=== PATIENT | female | born 1955 | race African-American/Black ===

== ENCOUNTER 2016-04-03 10:20 | Outpatient (CLI) | payer MEDICARE, OTHER ==
[2016-04-03 18:22] LABS: Hemoglobin A1c 6.2 % (4.0-6.0)
[2016-04-03 18:38] LABS: ALT (SGPT) 10 U/L (0-55); AST (SGOT) 13 U/L (5-34); Alkaline Phosphatase 77 U/L (40-150); Anion Gap 14 mmol/L (10-20); BUN (Urea Nitrogen) 12 mg/dL (9.8-20.1); Bilirubin, Total 0.3 mg/dL (0.2-1.2); Calc. Creatinine Clearance 0 mL/min (70-130); Calcium 9.1 mg/dL (7.8-10.44); Carbon Dioxide 25 mmol/L (23-31); Chloride 108 mmol/L (98-107); Estimated GFR-MDRD 85; LDL Cholesterol, Calculated 79 mg/dL; Protein, Total 6.9 g/dL (5.8-8.1)
[2016-04-03 21:00] LABS: #Basophils 0.1 thou/uL (0.0-0.2); #Eosinphils 0.1 thou/uL (0.0-0.7); #Monocytes 0.5 thou/uL (0.11-0.59); %Basophils 0.9 % (0.0-1.0); %Eosinophils 0.5 % (0.0-10.0); %Monocytes 4.7 % (0.0-10.0); Hematocrit 49.5 % (36.0-47.0); Macrocytosis SLIGHT = 6-15 cells (100X) (0-5/hpf); Mean Platelet Volume 5.4 fL (7.4-10.4); Red Blood Cell (RBC) Count 4.81 mill/uL (4.20-5.40); White Blood Cell (WBC) Count 10.6 thou/uL (4.8-10.8)
== END 2016-04-03 10:21 | disposition home or self-care (01) ==
LOC: LABLEX 10:20
PROVIDERS: ATTEND Family Medicine
DX: Z01.818 Encounter for other preprocedural examination (principal); I10 Essential (primary) hypertension; E11.9 Type 2 diabetes mellitus without complications; E78.5 Hyperlipidemia, unspecified; E55.9 Vitamin D deficiency, unspecified; E03.9 Hypothyroidism, unspecified
CPT/HCPCS: 36415; 80053; 80061; 82306; 83036; 84443; 85025

== ENCOUNTER 2016-06-02 04:39 | Emergency (ER) | payer MEDICARE, OTHER ==
[2016-06-02] MEDS ORDERED: Lorazepam 2 MG/ML VIAL ONE (05:20)
[2016-06-02 05:23] LABS: #Basophils 0.1 thou/uL (0.0-0.2); #Lymphocytes 1.6 thou/uL (1.20-3.40); #Monocytes 0.5 thou/uL (0.11-0.59); #Neutrophils 8.6 thou/uL (1.40-6.50); %Basophils 0.8 % (0.0-1.0); %Eosinophils 0.3 % (0.0-10.0); %Lymphocytes 14.6 % (21.0-51.0); %Monocytes 4.7 % (0.0-10.0); %Neutrophils 79.6 % (42.0-75.0); Hemoglobin 12.2 g/dL (12.0-16.0); Mean Corpuscular Hemoglobin 33.7 pg (27.0-31.0); Mean Platelet Volume 5.6 fL (7.4-10.4); Platelet Count 362 thou/uL (130-400); RBC Distribution Width 13.1 % (11.5-14.5); Red Blood Cell (RBC) Count 3.61 mill/uL (4.20-5.40); White Blood Cell (WBC) Count 10.8 thou/uL (4.8-10.8)
[2016-06-02 05:39] LABS: ALT (SGPT) 10 U/L (0-55); AST (SGOT) 13 U/L (5-34); Albumin 3.4 g/dL (3.4-4.8); Alkaline Phosphatase 63 U/L (40-150); Anion Gap 12 mmol/L (10-20); BUN (Urea Nitrogen) 6 mg/dL (9.8-20.1); Bilirubin, Total 0.4 mg/dL (0.2-1.2); Calc. Creatinine Clearance 0 mL/min (70-130); Calcium 9.2 mg/dL (7.8-10.44); Carbon Dioxide 27 mmol/L (23-31); Chloride 104 mmol/L (98-107); Estimated GFR-MDRD Greater than 90; Globulin 3.5 g/dL (2.4-3.5); Glucose 131 mg/dL (80-115); Potassium 3.3 mmol/L (3.5-5.1); Protein, Total 6.9 g/dL (5.8-8.1); Sodium 140 mmol/L (136-145)
[2016-06-02 05:41] LABS: CKMB 1.8 ng/mL (0-6.6); Troponin I Less than 0.010 ng/mL (< 0.028)
[2016-06-02] MEDS ORDERED: Iopamidol-M 200 41% 10 ML VIAL FS ONE (09:00)
--- NOTE | 2016-06-02 10:26 | RAD ---
PORTABLE CHEST: Date: 06/02/16 Comparison is made with a 04/19/15 study from [facility]. FINDINGS: The heart is mildly enlarged, perhaps slightly more than before. There is no clear vascular congesti on, edema, or pleural effusion. The lungs seem clear. IMPRESSION: Cardiomegaly and arteriosclerosis. POS: HOME
--- NOTE | 2016-06-02 10:30 | CT ---
PRELIMINARY REPORT/[facility]/EMERGENCY AFTER HOURS PROCEDURE: EXAM: CT Angiography Chest With Intravenous Contrast CLINICAL HISTORY: 61 years old, female; Abnormal findings; Abnormal diagnostic tests; Elevated d-dimer; Prior surgery; Surgery date: 3-7 days post-operative; Surgery type: Back surgery on sat. ; Patient HX: Pt here wit h SOB. S/P back surgery on wed. Elevated d-dimer. TECHNIQUE: Axial computed tomographic angiography images of the chest with intravenous contrast using pulmonary embolism protocol. Coronal and sagittal reformatted images were created and reviewed. CONTRAST: 94 mL of ISOVUE 370 administered intravenously. COMPARISON: No relevant prior studies available. FINDINGS: No definite filling defect to suggest the diagnosis of acute pulmonary embolus. Subsegmental/peripheral vessels are less than optimally evaluated/visualized in this patient. No evidence of thoracic aortic dissection or focal aneurysm. Mild cardiomegaly. Some coronary artery calcifications noted, mainly in the period Moderate amount of pericardial fluid, measuring up to 9-10 mm posteriorly. A few borderline prominen t hilar and mediastinal lymph nodes. No evidence for pneumomediastinum or pneumothorax. Right lung: No significant parenchymal opacity or mass. No pleural fluid. Left lung: No significant parenchymal opacity or mass. Some mild emphysematous changes in the left upper lung. No pleural fluid. There is fatty infiltration of the liver. Images that include the upper abdomen otherwise appear essentially unremarkable. IMPRESSION: No definite evidence of acute pulmonary embolus, see above. No evidence of thoracic aortic dissection or focal aneurysm. Moderate pericardial effusion. Mild cardiomegaly. Coronary artery calcifications. Essentially clear lungs, no pleural fluid. Other details/findings discussed above. Thank you for allowing us to participate in the care of your patient. Dictated and Authenticated by: Caleb Mares MD 06/02/2016 6:45 AM Central Time ([place] \T\ [place]) FINAL REPORT CT ANGIO OF THE CHEST: Date: 06/02/[address] angio of the chest was performed after a bolus of IV contrast. Axial slices were acquired, then coronal and sagittal reconstructions were done. FINDINGS: There are no filling defects in the major pulmonary arterial branches to suggest emboli. Small perip heral emboli might not be seen on this study. There is no sign of aortic dissection or aneurysm. Cor onary artery calcifications are present, particularly in the left coronary system. The major finding on the study is a moderate pericardial effusion. The heart overall is mildly to moderately enlarged . There is some scattered mediastinal and hilar adenopathy. One large node measuring 2.0 cm in size wa s seen just anteriorly and to the left of the ascending aorta and main pulmonary trunk. The lungs th emselves show emphysematous changes, with some small cystic areas or bulla in the left upper lobe. N o lobar consolidation was seen, though pulmonary interstitium seems a bit thick in places. Some area s of pleural thickening are seen throughout the thorax. There are no pleural effusions. A few slices into the upper abdomen showed some fatty infiltration of the liver, but no other acute change. IMPRESSION: 1. No evidence of pulmonary embolism. 2. Moderate pericardial effusion. 3. Coronary artery calcifications. 4. COPD with some thickening or fibrosis of the interstitium. 5. Other findings as noted above. REPORT IN AGREEMENT WITH PRELIMINARY READING BY ANASTASIYA. POS: HOME
== END 2016-06-02 06:53 | disposition home or self-care (01) ==
LOC: BURERS 04:39
DX: R06.00 Dyspnea, unspecified (principal); E03.9 Hypothyroidism, unspecified; E11.9 Type 2 diabetes mellitus without complications; E78.5 Hyperlipidemia, unspecified; E78.00 Pure hypercholesterolemia, unspecified; I10 Essential (primary) hypertension; F41.9 Anxiety disorder, unspecified; F32.9 Major depressive disorder, single episode, unspecified; F17.210 Nicotine dependence, cigarettes, uncomplicated; Z79.84 Long term (current) use of oral hypoglycemic drugs; Z79.4 Long term (current) use of insulin; Z79.899 Other long term (current) drug therapy
CPT/HCPCS: 71010; 71275; 80053; 82553; 84484; 85025; 85379; 93005; 96374; A4216; J2060

== ENCOUNTER 2020-11-07 17:28 | Emergency (ER) | payer MEDICARE ==
[2020-11-07 17:57] LABS: #Basophils 0.1 thou/uL (0.0-0.2); #Lymphocytes 0.8 thou/uL (1.20-3.40); #Neutrophils 8.7 thou/uL (1.40-6.50); %Basophils 0.7 % (0.0-1.0); %Eosinophils 0.3 % (0.0-10.0); %Lymphocytes 7.2 % (21.0-51.0); %Monocytes 9.7 % (0.0-10.0); %Neutrophils 82.1 % (42.0-75.0); Hemoglobin 11.1 g/dL (12.0-16.0); Mean Corpuscular HGB CONC 31.4 g/dL (32.0-36.0); Mean Corpuscular Hemoglobin 28.6 pg (27.0-31.0); Mean Corpuscular Volume 91.1 fL (78.0-98.0); Mean Platelet Volume 5.8 fL (7.4-10.4); Platelet Count 393 thou/uL (130-400); RBC Distribution Width 14.5 % (11.5-14.5); Red Blood Cell (RBC) Count 3.88 mill/uL (4.20-5.40); White Blood Cell (WBC) Count 10.6 thou/uL (4.8-10.8)
[2020-11-07 18:16] LABS: ALT (SGPT) 20 U/L (8-55); AST (SGOT) 16 U/L (5-34); Albumin 3.1 g/dL (3.4-4.8); Alkaline Phosphatase 125 U/L (40-110); Anion Gap 17 mmol/L (10-20); BUN (Urea Nitrogen) 12 mg/dL (9.8-20.1); Bilirubin, Total 0.4 mg/dL (0.2-1.2); Calc. Creatinine Clearance 0 mL/min (70-130); Calcium 9.1 mg/dL (7.8-10.44); Carbon Dioxide 24 mmol/L (23-31); Chloride 93 mmol/L (98-107); Globulin 4.2 g/dL (2.4-3.5); Glucose 519 mg/dL (80-115); Potassium 3.9 mmol/L (3.5-5.1); Protein, Total 7.3 g/dL (5.8-8.1); Sodium 130 mmol/L (136-145)
[2020-11-07 18:33] LABS: Bilirubin Negative (Negative); Blood, Urine Trace (Negative); Clarity Clear (Clear); Glucose, Urine (Dipstick) 500 mg/dL (Negative); Ketone, Urine Negative (Negative); Leukocyte Negative (Negative); Nitrite Negative (Negative); Protein, Urine (Dipstick) Negative (Neg-Trace); Urobilinogen 0.2 mg/dL (Less than 2); pH, Urine 6.5 (5.0-9.0)
[2020-11-07 18:37] LABS: Bacteria/HPF 1+ HPF (None Seen); RBC/HPF 0-3 HPF (0-3); Squamous Epithelial 0-3 HPF (0-3); WBC/HPF 0-3 HPF (0-3)
[2020-11-07] MEDS ORDERED: Aspirin Chewable 81 MG TAB ONE (21:00)
[2020-11-08 16:17] LABS: SARS-CoV-2 PCR by NAA DETECTED (NotDetected)
== END 2020-11-07 23:09 | disposition home or self-care (01) ==
LOC: BURERS 17:28
DX: U07.1 COVID-19 (principal); J44.9 Chronic obstructive pulmonary disease, unspecified; E11.65 Type 2 diabetes mellitus with hyperglycemia; E03.9 Hypothyroidism, unspecified; E78.5 Hyperlipidemia, unspecified; E78.00 Pure hypercholesterolemia, unspecified; M79.7 Fibromyalgia; M19.90 Unspecified osteoarthritis, unspecified site; G47.30 Sleep apnea, unspecified; I10 Essential (primary) hypertension; F17.210 Nicotine dependence, cigarettes, uncomplicated
CPT/HCPCS: 36416; 71045; 80053; 81003; 81015; 83605; 83880; 84484; 85025; 87804; 93005; U0003; U0005

== ENCOUNTER 2021-01-13 17:20 | Outpatient (CLI) | payer MEDICARE ==
[2021-01-13 22:03] LABS: Hemoglobin A1c 11.5 % (4.0-6.0)
== END 2021-01-13 17:21 | disposition home or self-care (01) ==
LOC: BURLABSP 17:20
PROVIDERS: ATTEND Nurse Practitioner
DX: E11.9 Type 2 diabetes mellitus without complications (principal)
CPT/HCPCS: 83036